=== PATIENT | male | born 1975 | race Two or more races ===

== ENCOUNTER 2019-03-25 23:38 | Emergency (ER) | payer OTHER ==
--- NOTE | 2019-03-25 23:57 | ER Document Report ---
ED Medical Screen (RME) - General Chief Complaint: Finger Injury Stated Complaint: FINGER PAIN Time Seen by Provider: 03/25/19 23:56 Mode of Arrival: Ambulatory Information source: Patient Notes: Patient presents with injury to the middle finger of his right hand. Reports he fell on a door. Patient is right-handed. Obvious injury noted possible dislocation good cap refill less than 2 seconds. I have greeted and performed a rapid initial assessment of this patient. A comprehensive ED assessment and evaluation of the patient, analysis of test results and completion of the medical decision making process will be conducted by additional ED providers. TRAVEL OUTSIDE OF THE [place] IN LAST 30 DAYS: No - Related Data Allergies/Adverse Reactions: No Known Allergies Allergy (Verified 04/26/15 10:17) Physical Exam - Vital signs Vitals: Temp Pulse Resp BP Pulse Ox 98.1 F 110 H 18 173/89 H 95 03/25/19 23:43 03/25/19 23:43 03/25/19 23:43 03/25/19 23:43 03/25/19 23:43 Course - Vital Signs Vital signs: Temp Pulse Resp BP Pulse Ox 98.1 F 110 H 18 173/89 H 95 03/25/19 23:43 03/25/19 23:43 03/25/19 23:43 03/25/19 23:43 03/25/19 23:43
--- NOTE | 2019-03-26 01:04 | RADIOLOGY REPORT (SQ) ---
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 HISTORY: 43-year-old patient with history of right hand pain, trauma. COMPARISON: None available FINDINGS: There is subluxation of the right third digit at the PIP joint. The distal digit is ulnarly displaced. There is likely a fracture at the volar plate of the middle phalanx of the right third digit. IMPRESSION: There is subluxation of the right third digit at the PIP joint. There is likely a fracture at the volar plate at the middle phalanx.
[2019-03-26] MEDS ORDERED: ACETAMINOPHEN 325 MG TABLET PO ONE (01:47)
[2019-03-26] MEDS ORDERED: PROMETHAZINE HCL 25 MG TABLET PO ONE (02:13)
[2019-03-26] MEDS ORDERED: OXYCODONE HCL IR 5 MG TABLET PO ONE (02:13)
--- NOTE | 2019-03-26 02:15 | ER Document Report ---
HPI - HPI Time Seen by Provider: 03/25/19 23:56 Pain Level: 5 Context: Patient is a 43-year-old male that comes emergency department for chief complaint of a right middle finger deformity from an injury from a fall. He states that he was going up stairs, tripped, fell, landed on his hand/finger, and caused the deformity. He denies any other injuries. He denies any open wounds, he denies any daily medications or past medical history. - CONSTITUTIONAL Constitutional: DENIES: Fever, Chills - EENT EENT: DENIES: Sore Throat, Ear Pain, Eye problems - NEURO Neurology: DENIES: Headache, Weakness, Vision blurred, Dizzinesss / Vertigo - CARDIOVASCULAR Cardiovascular: DENIES: Chest pain - RESPIRATORY Respiratory: DENIES: Trouble Breathing, Coughing - GASTROINTESTINAL Gastrointestinal: DENIES: Abdominal Pain, Black / Bloody Stools - URINARY Urinary: DENIES: Dysuria, Urgency, Frequency - MUSCULOSKELETAL Musculoskeletal: DENIES: Extremity pain Past Medical History - General Information source: Patient - Social History Smoking Status: Never Smoker Frequency of alcohol use: None Drug Abuse: None Lives with: Family Family History: Reviewed & Not Pertinent Patient has suicidal ideation: No Patient has homicidal ideation: No Surgical Hx: Negative - Immunizations Immunizations up to date: Yes Hx Diphtheria, Pertussis, Tetanus Vaccination: Yes Vertical Provider Document - CONSTITUTIONAL General Appearance: WD/WN, No Apparent Distress - INFECTION CONTROL TRAVEL OUTSIDE OF THE [place] IN LAST 30 DAYS: No - HEENT HEENT: Atraumatic, Normocephalic - NECK Neck: Normal Inspection - RESPIRATORY Respiratory: Breath Sounds Normal, No Respiratory Distress, Chest Non-Tender - CARDIOVASCULAR Cardiovascular: Regular Rate, Regular Rhythm - GI/ABDOMEN Gastrointestinal: Abdomen Soft, Abdomen Non-Tender. negative: Abdomen Tender - BACK Back: Normal Inspection - MUSCULOSKELETAL/EXTREMETIES Musculoskeletal/Extremeties: MAEW, FROM, Non-Tender - There is swelling and tenderness of the right middle finger but range of motion is intact, strength intact, cap refill and sensation intact. Remaining hand exam unremarkable, no snuffbox tenderness, unremarkable upper extremity otherwise Course - Re-evaluation Re-evalutation: Initial x-ray is abnormal, however after the x-ray patient was waiting in the room and self reduced his own subluxed finger. He appears to have done a good job so I gave him pain medication, we did reimage this and this was noted to be a good job. There is an avulsion fracture. Otilia taping was provided, discussed details with patient, he will follow-up closely with orthopedics for additional management, discussed return precautions. Patient states understanding and agreement with plan. - Vital Signs Vital signs: Temp Pulse Resp BP Pulse Ox 98.1 F 110 H 18 173/89 H 95 03/25/19 23:43 03/25/19 23:43 03/25/19 23:43 03/25/19 23:43 03/25/19 23:43 Discharge - Discharge Clinical Impression: Avulsion fracture Dislocation, finger, interphalangeal joint Qualifiers: Encounter type: initial encounter Qualified Code(s): S63.279A - Dislocation of unspecified interphalangeal joint of unspecified finger, initial encounter Condition: Stable Disposition: HOME, SELF-CARE Instructions: Oral Narcotic Medication ([facility]) Additional Instructions: The finger is reduced back into place. There is an avulsion fracture. Continue to otilia tape this to protect this and allow this to heal, follow-up with orthopedics for additional management. Take Tylenol or ibuprofen for pain, take the pain medication provided only if needed for severe pain or if needed to sleep. Return if you worsen including severe worsening swelling or pain. Forms: Elevated Blood Pressure Referrals: FREDY CAROLINA DO [ACTIVE STAFF] - Follow up in 1 week
--- NOTE | 2019-03-26 02:55 | RADIOLOGY REPORT (SQ) ---
EXAM DESCRIPTION: XR FINGERS COMPLETED DATE/TME: 03/26/2019 02:13 CLINICAL HISTORY: 43 years, Male, s/p reduction COMPARISON: Right hand from today's date NUMBER OF VIEWS: 3 TECHNIQUE: 3 views of the right third digit LIMITATIONS: None. FINDINGS: Reduction of the previously noted dislocation of the PIP joint third digit. Small avulsed fracture fragment seen on the lateral view. IMPRESSION: Interval reduction with small avulsed fracture fragment copyright 2010 [employer]- All Rights Reserved
[2019-03-26] MEDS ORDERED: HYDROCODONE/ACETAMINOPHEN 5-325 MG (6 TAB/ER DISP) PO PRN (03:17)
[2019-03-26 03:42] VITALS: BP 162/78
== END 2019-03-26 03:36 | disposition home or self-care (01) ==
LOC: ER 23:38
PROC: 0PSVXZZ Reposition Left Finger Phalanx, External Approach (ICD-10-PCS; principal; 2019-03-25)
DX: S63.293A Dislocation of distal interphalangeal joint of left middle finger, initial encounter (principal); W10.9XXA Fall (on) (from) unspecified stairs and steps, initial encounter
CPT/HCPCS: 99283

== ENCOUNTER → 2020-03-23 | Outpatient (CLI) | payer OTHER ==
[~2020-03-23] MED LIST: COVID-19 VACCINE (PFIZER)/PF 30 MCG/0.3 ML VIAL IM ONE; EPINEPHRINE INJ/PF 1 MG/1 ML AMPULE IM PRN
== END ==
LOC: EMPHEALTH 13:30
PROVIDERS: ATTEND Internal Medicine
DX: Z23 Encounter for immunization (principal)
CPT/HCPCS: 91300